=== PATIENT | female | born 1955 | race African-American/Black ===

== ENCOUNTER 2017-06-20 03:11 | Emergency (ER) | payer OTHER, MEDICAID ==
[~2017-06-20] VITALS: Ht 167.6 cm; Wt 64.0 kg
[2017-06-20] MEDS ORDERED: ASPIRIN 81MG TABLET PO ONE (04:30)
[2017-06-20] MEDS ORDERED: NITROGLYCERIN OINT 1GM/INCH UDPKT TD ONE (04:30)
[2017-06-20 05:07] LABS: BASOPHILS % 0.9 % (0.0-2.0); EOSINOPHILS % 3.7 % (0.0-5.0); HEMATOCRIT. 38.6 % (36.0-48.0); HEMOGLOBIN. 13.2 g/dL (12.0-16.0); LYMPHOCYTES % 18.8 % (20.0-50.0); MEAN CORPUSCULAR VOLUME 87.9 fL (81.0-99.0); MEAN PLATELET VOLUME 6.7 fl (7.4-10.4); MONOCYTES % 5.5 % (2.0-8.0); NEUTROPHILS % 71.1 % (40.0-76.0); PLATELET 369 x1000/uL (130-400); RED BLOOD CELL COUNT 4.39 mill/uL (4.2-5.4); RED CELL DISTRIBUTION WIDTH 15.7 % (11.6-14.6)
[2017-06-20 05:13] LABS: CHLORIDE 106 mEq/L (98-107)
[2017-06-20 05:14] LABS: PROTHROMBIN TIME 10.2 sec (9.4-11.6)
[2017-06-20 05:17] LABS: ETHANOL BLOOD < 10 mg/dL
[2017-06-20] MEDS ORDERED: ASPIRIN 325MG EC TABLET PO ONE (07:15)
[2017-06-20 09:03] LABS: *AMPHETAMINES SCREEN URINE NEGATIVE (NEGATIVE); *BARBITURATES SCREEN URINE NEGATIVE (NEGATIVE); *BENZODIAZEPINES SCREEN URINE NEGATIVE (NEGATIVE); METHADONE URINE SCREEN NEGATIVE (NEGATIVE)
[2017-06-20 09:05] LABS: CANNABINOID URINE SCREEN NEGATIVE (NEGATIVE); OPIATES URINE SCREEN NEGATIVE (NEGATIVE); PHENCYCLIDINE URINE SCREEN NEGATIVE (NEGATIVE)
[2017-06-20 09:06] LABS: *COCAINE SCREEN URINE PRESUMTIVE POSITIVE (NEGATIVE)
[2017-06-20 09:45] VITALS: BP 134/72
[2017-06-20] MEDS ORDERED: NA PHOS,M-B/NA PHOS,DI-BA ENEMA 118ML PR PRN ×2 (09:45→10:00)
[2017-06-20] MEDS ORDERED: DOCUSATE SODIUM 100MG CAPSULE PO PRN ×2 (09:45→10:00)
[2017-06-20] MEDS ORDERED: DIPHENHYDRAMINE 50MG/ML VIAL IV PRN ×2 (09:45→10:00)
[2017-06-20] MEDS ORDERED: GUAIFENESIN 200MG/10ML SUGAR FREE UDC PO PRN ×2 (09:45→10:00)
[2017-06-20] MEDS ORDERED: ZOLPIDEM TARTRATE 5MG TABLET PO PRN ×2 (09:45→10:00)
[2017-06-20] MEDS ORDERED: NITROGLYCERIN 0.4MG TABLET SL SL PRN ×2 (09:45→10:00)
[2017-06-20] MEDS ORDERED: ACETAMINOPHEN 325MG TABLET PO PRN ×2 (09:45→10:00)
[2017-06-20] MEDS ORDERED: ENOXAPARIN 40MG/0.4ML SYR SUBCUT SCH ×2 (09:45→10:00)
[2017-06-20] MEDS ORDERED: TRAMADOL 50MG TABLET PO PRN ×2 (09:45→10:00)
[2017-06-20] MEDS ORDERED: IPRATROPIUM/ALBUTEROL 0.5-3(2.5)MG/3ML NEB INH PRN ×2 (09:45→10:00)
[2017-06-20] MEDS ORDERED: MAGNESIUM/ALUMINUM HYDROXIDE/SIMETHICONE 30ML UDC PO PRN ×2 (09:45→10:00)
[2017-06-20] MEDS ORDERED: LORAZEPAM 0.5MG TABLET PO PRN ×2 (09:45→10:00)
[2017-06-20] MEDS ORDERED: MORPHINE SULFATE 2 MG/ML CPJ (NOT FOR IM USE) IV PRN ×2 (09:45→10:00)
[2017-06-20] MEDS ORDERED: CLONIDINE 0.1MG TABLET PO PRN ×2 (09:45→10:00)
[2017-06-20] MEDS ORDERED: ONDANSETRON HCL 4MG/2ML VIAL IV PRN ×2 (09:45→10:00)
[2017-06-20] MEDS ORDERED: SUCRALFATE 1 G/10 ML UDC PO SCH ×2 (13:00)
[2017-06-20] MEDS ORDERED: METOPROLOL TARTRATE 25MG TABLET PO SCH ×2 (21:00)
[2017-06-20] MEDS ORDERED: FAMOTIDINE 20MG TABLET PO SCH ×2 (21:00)
[2017-06-21] MEDS ORDERED: ASPIRIN 325MG EC TABLET PO SCH ×2 (09:00)
== END 2017-06-20 09:53 | disposition left against medical advice (07) ==
LOC: ER 03:11 → SUPCPDRO 09:38 → ER 09:53 → CANBEDREQ 09:55
DX: R07.9 Chest pain, unspecified (principal); R56.9 Unspecified convulsions; J44.9 Chronic obstructive pulmonary disease, unspecified; I10 Essential (primary) hypertension; F41.9 Anxiety disorder, unspecified; F17.200 Nicotine dependence, unspecified, uncomplicated; F12.10 Cannabis abuse, uncomplicated; F14.10 Cocaine abuse, uncomplicated
CPT/HCPCS: 36415; 71045; 80053; 80061; 80305; 83036; 83690; 83880; 84484; 85025; 85610; 93005; 99285; G0482